=== PATIENT | male | born 1950 | race Caucasian/White ===

== ENCOUNTER 2019-07-08 01:44 | Day surgery (SDC) | payer MEDICARE, SELFPAY ==
[2019-07-02 14:40] VITALS: BMI 28.8
[2019-07-08 08:40] VITALS: BP 127/90; PULSE 64; RESP 16; TEMP 36.2; O2SAT 98
[2019-07-08] MEDS: LACTATED RINGERS 1,000 ML 150 ML IV CONT (08:43)
--- NOTE | 2019-07-08 09:02 | WPDANESEPPF ---
Anes - Initial Pre Proc Eval Procedure: Operation Date: 07/08/19 09:30 Proposed Procedures p Esophagogastroduodenoscopy - Jonathon Ferguson MD Date/Time: 07/08/19 09:02 Surgeon: Jonathon Ferguson MD Pre Op Diagnosis: Barretts Esophagus Patient Data Age: 69 Gender: M Height: 5 ft 8 in Weight: 86.7 kg Last Vital Signs Temp 97.2 F L 07/08/19 08:40 Pulse 64 07/08/19 08:40 Resp 16 07/08/19 08:40 BP 127/90 07/08/19 08:40 Pulse Ox 98 07/08/19 08:40 Allergies Allergy/AdvReac Type Severity Reaction Status Date / Time No Known Allergies Allergy Verified 07/08/19 08:39 Home Medications Medication Instructions Recorded Confirmed Type carvedilol [Coreg] 12.5 mg PO DAILY 07/02/19 07/02/19 History triamterene-hydrochlorothiazid 75 tablet PO DAILY 07/02/19 07/02/19 History [Maxzide] Patient hx anesthesia problems: none Family hx anesthesia problems: none [facility] Past Medical History Medical History (Updated 07/08/19 @ 09:01 by Bridger Suarez MD) Hypertension Social History Social History Gender identity (if verbalized by the patient): Male Anes - Eval Final PreProcedure Day of Procedure 07/08/19 09:02 Patient weight: overweight Heart: regular rate and rhythm Lungs: clear to auscultation Airway: Mallampati scale class III Neurological: alert and oriented Last oral intake: >/= 8 hours ASA classification: II Emergent: no Anesthetic plan: proceed Anesthesia type and monitoring: general GIVS and standard monitoring Informed Consent: The patient's anesthetic plan and its attendant risks and benefits were discussed with the patient/family/POA. Questions were solicited and answers provided to the satisfaction of the patient/family/POA.
--- NOTE | 2019-07-08 09:06 | P.HP_ITS ---
History of Present Illness History of Present Illness Consent: Risks, benefits, and alternatives have been discussed and questions answered. Patient agrees to proceed with procedure. Chief complaint: Barretts Esophagus Narrative: Earnest Lyman is a 69 year old W male undergoing gastroscopy for a previous history of Dial's esophagus. However last gastroscopy several years ago no Dial's was noted on biopsy. Patient has no symptoms. He stopped his acid inhibitory therapy. [facility] Past Medical History Medical History Hypertension Surgical History Surgical History History of bilateral carpal tunnel release Status post rotator cuff surgery Status post total right knee replacement Social History Social History Gender identity (if verbalized by the patient): Male Meds Home Medications and Allergies Home Medications Medication Instructions Recorded Confirmed Type carvedilol [Coreg] 12.5 mg PO DAILY 07/02/19 07/02/19 History triamterene-hydrochlorothiazid 75 tablet PO DAILY 07/02/19 07/02/19 History [Maxzide] Allergies Allergy/AdvReac Type Severity Reaction Status Date / Time No Known Allergies Allergy Verified 07/08/19 08:39 Vital Signs Vital Signs - 24 hr 07/08/19 08:40 Temperature 36.2 C L Pulse Rate 64 Respiratory Rate 16 Blood Pressure 127/90 Pulse Oximetry 98 Exam Const: Orientation/consciousness: patient oriented x3 Resp: Auscultation: clear to auscultation bilaterally Cardio: Rate: regular rate Rhythm: regular rhythm Heart sounds: no murmurs GI: GI Palp: Yes Soft to palpation, No Tenderness to palpation present (GI), Yes No hepatosplenomegaly present and No Palpable mass present Auscultation: normal bowel sounds Neuro: General: patient oriented x3 and no focal motor deficits Extrem: General: no pedal edema Assessment and Plan Additional Plan gastroscopy for follow-up of Dial's esophagus.
[2019-07-08] MEDS: BENZOCAINE (*SP) 60 ML SPRAY CAN (HURRICAINE) 1 SPRAY MUCOUS MEM (09:58)
[2019-07-08 10:10] VITALS: BP 88/59; PULSE 64; RESP 18; O2SAT 97
[2019-07-08 10:20] VITALS: BP 111/51; PULSE 68; RESP 18; O2SAT 97
[2019-07-08 10:30] VITALS: BP 112/76; PULSE 59; RESP 18; O2SAT 98
== END 2019-07-08 10:44 | disposition home or self-care (01) ==
PROVIDERS: PCP Internal Medicine; Visit Provider Internal Medicine Gastroenterology
PROC: 0DJ08ZZ Inspection of Upper Intestinal Tract, Via Natural or Artificial Opening Endoscopic (ICD-10-PCS; CPT 43235; principal; 2019-07-08 09:30)
DX: Z09 Encounter for follow-up examination after completed treatment for conditions other than malignant neoplasm (principal); K44.9 Diaphragmatic hernia without obstruction or gangrene; K21.0 Gastro-esophageal reflux disease with esophagitis; K29.50 Unspecified chronic gastritis without bleeding; Z87.19 Personal history of other diseases of the digestive system; I10 Essential (primary) hypertension
CPT/HCPCS: 43239; 87081; 88305; J2001; J2704; J7120

== ENCOUNTER 2020-12-13 11:25 | Emergency (ER) | payer OTHER, MEDICARE, SELFPAY ==
--- NOTE | ~2020-12-13 | XR_ITS ---
[[id number] ] INDICATION: Right rib pain TECHNIQUE: Frontal projection of the upper right ribs, frontal projection of the lower right ribs, ob lique projection of all the right. ribs, frontal inspiratory chest x-ray for interpretation. FINDINGS: There are no displaced rib fractures identified. There are no soft tissue abnormality see n. The lungs are clear. There is an acute right sixth and seventh rib fracture. There is healed rig ht sixth rib fracture. Heart size normal. There are degenerative changes of the right glenohumeral beryl int. IMPRESSION: 1: Acute right sixth and seventh rib fracture. Reviewed, dictated and finalized at location A.
[2020-12-13 11:37] VITALS: BP 131/94; PULSE 89; RESP 18; TEMP 36.5; O2SAT 99
--- NOTE | 2020-12-13 12:28 | ED.FALL ---
HPI - Fall General Chief Complaint: Fall Stated Complaint: flank pain after fall this AM Time Seen by Provider: 12/13/20 12:11 Source: RN notes reviewed History of Present Illness HPI Narrative: Patient presents emergency department from home for a fall. Patient states he is at work this morning when he slipped and fell on a wet floor and landed on his right side on a mop handle patient notes pain in the right lateral ribs that are worse with any movement and deep inspiration he denies striking his head or any loss of consciousness denies any blood thinner use denies any shortness of breath abdominal pain nausea vomiting or any other symptoms Related Data Home Medications Medication Instructions Recorded Confirmed carvedilol [Coreg] 12.5 mg PO DAILY 07/02/19 07/02/19 triamterene-hydrochlorothiazid 75 tablet PO DAILY 07/02/19 07/02/19 [Maxzide] Allergies Allergy/AdvReac Type Severity Reaction Status Date / Time No Known Allergies Allergy Verified 12/13/20 11:46 Review of Systems Review of Systems: Narrative: Gen.: Denies fevers or chills ENT: Denies congestion Respiratory: Denies shortness of breath or cough CV: Reports right-sided chest pain GI: Denies abdominal pain nausea, emesis or diarrhea Musculoskeletal: Denies back pain or muscle pain Neuro: Denies numbness, tingling, weakness or focal weakness Skin: Denies rash Except as documented, all other systems reviewed and negative [facility] Past Medical History Medical History (Updated 12/13/20 @ 13:20 by Howard Wallace DO) Hypertension Surgical History Surgical History History of bilateral carpal tunnel release Status post rotator cuff surgery Status post total right knee replacement Social History Social History (Updated 12/13/20 @ 12:29 by Howard Wallace DO) Smoking status: Never smoker Gender identity (if verbalized by the patient): Male Exam Narrative: Exam Narrative: APPEARANCE: No acute distress, nontoxic, resting in bed EYES: EOMI HEENT: Normocephalic, atraumatic, OMM RESPIRATORY: No respiratory distress Clear to auscultation bilaterally with no rhonchi wheezing or rales. CARDIOVASCULAR: Regular rate and rhythm without murmurs rubs or gallops. Chest: Tender palpation over the right anterior lateral chest and regions of ribs 6 through 10 pain with deep inspiration or any movement no overlying ecchymosis ABDOMINAL: Soft, nontender, nondistended, no rebound or guarding, no tenderness in right upper quadrant MUSCULOSKELETAl: Moves all extremities. No clubbing, cyanosis or edema. NEURO: Awake and alert x 4. Following commands, speech normal, no focal deficits SKIN:: Warm, dry. No rashes lesions or abrasions PSYCHIATRIC: Normal affect/mood, Course Course Emergency Course: Patient given incentive spirometer in ED with instructions Discussed with patient results of workup and diagnosis. Discussed need for follow-up with primary care, proper use of medication, and reasons to return to the emergency department. Patient understands and agrees to current treatment plan Vital Signs Vital signs: Vital Signs Temperature 97.7 F 12/13/20 11:37 Pulse Rate 89 12/13/20 11:37 Respiratory Rate 18 12/13/20 11:37 Blood Pressure 131/94 H 12/13/20 11:37 Pulse Oximetry 99 12/13/20 11:37 Temperature 97.7 F 12/13/20 11:37 Pulse Rate 89 12/13/20 11:37 Respiratory Rate 18 12/13/20 11:37 Blood Pressure 131/94 H 12/13/20 11:37 Pulse Oximetry 99 12/13/20 11:37 MDM - Fall Imaging Data Radiologist's impression: ITS Impressions Ribs w/Chest X-Ray 12/13/20 12:37 IMPRESSION: 1: Acute right sixth and seventh rib fracture. Discharge Plan Discharge Clinical Impression: Closed traumatic nondisplaced fracture of multiple ribs of right side Patient Disposition: Home, Self-Care Condition: Stable Instructions: Antibiotic Form, Rib Fract
--- NOTE | 2020-12-13 12:32 | PC.NURSE ---
Pt off floor to radiology
[2020-12-13] MEDS: HYDROcodone/acetaminophen (*CRX) 5-325 MG TABLET 1 TAB PO (12:35)
[2020-12-13 13:38] VITALS: BP 127/96; PULSE 80; RESP 18; TEMP 36.4; O2SAT 96
== END 2020-12-13 13:41 | disposition home or self-care (01) ==
PROVIDERS: Emergency Provider Emergency Medicine; PCP Internal Medicine
DX: R10.9 Unspecified abdominal pain (principal); S22.41XA Multiple fractures of ribs, right side, initial encounter for closed fracture; W01.0XXA Fall on same level from slipping, tripping and stumbling without subsequent striking against object, initial encounter; I10 Essential (primary) hypertension
CPT/HCPCS: 71101; 99283; A9270

== ENCOUNTER 2021-01-11 09:13 | Outpatient (CLI) | payer OTHER, MEDICARE, SELFPAY ==
--- NOTE | ~2021-01-11 | XR_ITS ---
EXAMINATION: XR chest 2V DATE: 01/11/2021 09:44 INDICATION: Closed fracture of multiple right ribs. TECHNIQUE: Frontal and lateral views of the chest were obtained. COMPARISON: Chest and right rib radiographs 12/13/2020 FINDINGS: There is mild atelectasis in right lower lung zone. No pleural effusion or pneumothorax. Th e heart size is normal. There are multiple old healed right rib fractures. There is an old healed fra cture of inferior angle of the scapula. IMPRESSION: 1. Mild atelectasis in right lower lung zone. Reviewed, dictated and finalized at location A.
== END 2021-01-11 09:14 | disposition home or self-care (01) ==
PROVIDERS: PCP Internal Medicine; Visit Provider Internal Medicine
DX: S22.41XA Multiple fractures of ribs, right side, initial encounter for closed fracture (principal); X58.XXXA Exposure to other specified factors, initial encounter; R91.8 Other nonspecific abnormal finding of lung field
CPT/HCPCS: 71046

== ENCOUNTER 2021-01-18 13:59 | Outpatient (CLI) | payer OTHER, SELFPAY ==
--- NOTE | ~2021-01-18 | CT_ITS ---
EXAMINATION:CT diagnostic chest wo con DATE: 01/18/2021 14:30 INDICATION: Right chest pain. TECHNIQUE: Computed tomography (CT) of the chest was performed without intravenous contrast. Automate d exposure control and iterative reconstruction technique were employed. The dose-length product (DLP ) was 281.78 mGy-cm. COMPARISON: Chest 2 views 01/11/2021 FINDINGS: The lungs demonstrate mild atelectasis. There are subpleural bands in right lower lobe and right upper lobe. There are a few nodules in the lungs measuring up to 5 mm, likely benign. No pleura l effusion. The heart size is normal. There are coronary artery calcifications. No pericardial effusi on. There are suture anchors in left humeral head. There is severe right glenohumeral joint osteoarth ritis and moderate left glenohumeral joint osteoarthritis. There are healing fractures of right fourt h-eighth ribs. There is an old fracture of inferior angle of right scapula with nonunion. IMPRESSION: 1. Healing right rib fractures. Reviewed, dictated and finalized at location A.
== END 2021-01-18 14:00 | disposition home or self-care (01) ==
PROVIDERS: PCP Internal Medicine; Visit Provider Internal Medicine
DX: T14.90XA Injury, unspecified, initial encounter (principal); I25.10 Atherosclerotic heart disease of native coronary artery without angina pectoris; M19.012 Primary osteoarthritis, left shoulder; M19.011 Primary osteoarthritis, right shoulder
CPT/HCPCS: 71250

== ENCOUNTER → 2021-07-04 10:40 | Outpatient (CLI) | payer MEDICARE, SELFPAY ==
--- NOTE | ~2021-07-04 | DEXA_ITS ---
Bone Density Report Name: AMERICO ARTEAGA Age: 71 Sex: Male Ethnicity: White Date of : 1950 Indication: screening for osteoporosis; height loss; prior fracture; Referring Provider: Nina Cervantes Study: Bone densitometry was performed. Exam Date: July 04, 2021 Accession number: [id number] Bone Density: Region BMD T-score Z-score Classification AP Spine (L1-L4) 1.403 2.8 3.7 Normal Femoral Neck (Left) 0.956 0.2 1.4 Normal Total Hip (Left) 1.168 0.9 1.6 Normal Femoral Neck (Right) 0.983 0.4 1.6 Normal Total Hip (Right) 1.156 0.8 1.5 Normal Total Hip Mean 1.162 0.9 1.6 Normal World Health Organization criteria for BMD impression classify patients as: Normal (T-score at or above -1.0), Osteopenia (T-score between -1.0 and -2.5), or Osteoporosis (T-score at or below -2.5). 10-year Fracture Risk: FRAX not reported because: All T-scores for Spine Total, Hip Total, Femoral Neck at or above -1.0 Clinical Information Provided by Patient: Has had a low trauma fracture Has used the following medications: Vitamin D Patient maximum height was 68 No regular weight bearing exercise Drinks caffeinated beverages Impression: The patient has normal bone mass. The patient has risk factors, including: previous fracture. Discussion: BONE DENSITY IS ABOVE THE MINIMUM DESIRABLE LEVEL AT ALL SKELETAL SITES TESTED. This patient?s bone mineral density is above the minimum desirable level (T-score -1.0 or better) at all sites measured. The patient should follow a healthful lifestyle (good nutrition with adequate calcium and vitamin D, and appropriate weight-bearing exercise). Follow-Up: Consider repeating this study in 5 years or sooner if there is some new clinical indication. Reported by: PIPER on 07/04/2021 3:58:00 PM. Reviewed, dictated and finalized at location AJosé Miguel [facility] NETWORKClifford
== END ==
PROVIDERS: PCP Internal Medicine
DX: M85.88 Other specified disorders of bone density and structure, other site (principal)
CPT/HCPCS: 77080

== ENCOUNTER 2021-10-26 09:44 | Emergency (ER) | payer MEDICARE, SELFPAY ==
--- NOTE | ~2021-10-26 | CT_ITS ---
EXAMINATION: CTA chest PE protocol DATE: 10/26/2021 11:10 CDT INDICATION: Elevated d-dimer. Shortness of breath and chest pain. TECHNIQUE: Computed tomographic angiography (CTA) of the chest was performed with 100 mL Omnipaque-35 0 intravenous contrast. The dose-length product was 468.73 mGy-cm. Maximum intensity projection 3D-re constructions of the aorta and other arteries were constructed by the technologist on a separate work station. COMPARISON: CT dated 01/18/2021. FINDINGS: Study is technically adequate without evidence for pulmonary embolism. Heart size is normal . No significant pleural or pericardial effusion. There is hilar lymphadenopathy, likely reactive. Th ere is atherosclerosis of the aorta and coronary arteries. No evidence for aneurysm. There is a 1.7 c m left adrenal adenoma. Gallbladder is present. No endobronchial lesions. There is dependent atelecta sis. Mild paraseptal emphysema. There is a 6 mm left lower lobe nodule, image 78, unchanged. There is a 3 mm left lower lobe nodule which has a groundglass appearance, unchanged, image 70. There is a 4 mm left lower lobe nodule, image 63, unchanged. 4 mm left upper lobe nodule, image 47, unchanged. Mil d thoracic spondylosis. IMPRESSION: 1. No evidence for pulmonary embolism. 2: Stable or slightly decreased size of left pulmonary nodules measuring 6 mm or less, likely benign. Consider follow-up CT in 12 months. 3: Hilar lymphadenopathy, likely reactive. Reviewed, dictated and finalized at location B. IMPRESSION: 1. No evidence for pulmonary embolism. 2: Stable or slightly decreased size of left pulmonary nodules measuring 6 mm o r less, likely benign. Consider follow-up CT in 12 months. 3: Hilar lymphadenopathy, likely reactive.
--- NOTE | ~2021-10-26 | XR_ITS ---
EXAMINATION: XR chest 2V DATE: 10/26/2021 10:50 INDICATION: Shortness of breath. Posterior chest pain. TECHNIQUE: Frontal and lateral views of the chest were obtained. COMPARISON: Chest 2 views 01/11/2021 FINDINGS: The chest demonstrates clear lungs without pneumonia, pleural effusion, or pneumothorax. Th e heart size is normal. There are suture anchors in left humeral head. There are old healed right rib fractures. IMPRESSION: 1. No acute cardiopulmonary disease. Reviewed, dictated and finalized at location A.
[2021-10-26 09:50] VITALS: BP 169/97; PULSE 67; RESP 15; TEMP 36.6; O2SAT 98
--- NOTE | 2021-10-26 09:57 | ECG_ITS ---
Measurements Intervals Steele Rate: 63 P: 32 MS: 186 QRS: -35 QRSD: 81 T: -13 QT: 374 QTc: 383 Interpretive Statements SINUS RHYTHM LEFT AXIS DEVIATION [QRS AXIS < -30] VOLTAGE CRITERIA FOR LVH [MEETS CRITERIA IN ONE OF: R(aVL), S(V1), R(V5), R(V5/V6)+S(V1)] NONSPECIFIC T-WAVE ABNORMALITY NO PREVIOUS ECG AVAILABLE FOR COMPARISON Electronically Signed On 10-26-2021 14:11:46 CDT by Frantz Colbert M.D.
[2021-10-26 09:58] VITALS: PULSE 68
[2021-10-26 10:07] LABS: Basophils Percent Auto 0.7 % (0.2-1.2); Hematocrit 45.6 % (42.0-52.0); Hemoglobin 16.5 g/dL (14.0-18.0); Immature Granulocyte Absolute 0.01 K/mm3 (0.00-0.031); Immature Granulocyte Percent A 0.2 % (0-0.5); Lymphocytes Absolute Auto 1.25 K/mm3 (0.9-3.2); Lymphocytes Percent Auto 29.8 % (18.3-44.2); Mean Corpuscular HGB Conc 36.2 g/dl (32-36); Mean Corpuscular Hemoglobin 32.7 pg (26-34); Mean Corpuscular Volume 90.3 fl (80-100); Mean Platelet Volume 10.8 fl (7.4-10.4); Monocytes Absolute Auto 0.5 K/mm3 (0.1-0.6); Monocytes Percent Auto 11.7 % (2.6-8.5); Neutrophils Absolute Auto 2.4 K/mm3 (1.3-6.7); Neutrophils Percent Auto 56.6 % (45.5-73.1); Platelet Count Result 167 k/mm3 (150-375); Red Blood Count 5.05 M/mm3 (4.6-6.20); Red Cell Distribution Width 12.8 % (11.5-14.5); White Blood Count 4.2 K/mm3 (4.5-10.0)
--- NOTE | 2021-10-26 10:09 | ED.GENADULT ---
HPI - General Adult General Chief complaint: Chest Pain Stated complaint: cp Time Seen by Provider: 10/26/21 09:46 Source: patient, family and RN notes reviewed Mode of arrival: ambulatory Limitations: no limitations History of Present Illness HPI narrative: This is a 71 year old male with history of hypertension, chronic back pain and hyperlipidemia who presents for evaluation of shortness of breath. Patient states he has been short of breath since he woke up this morning. He has been having to stop frequently when he walks around due to shortness of breath. Patient states this started today but his is reporting it has been going on for a while. Patient states he has been having constant right upper back pain for 1 year after fall. He was seen by his PCP for his pain, and he was prescribed pain medication. His states his pain was severe a few days. Patient also notes 6 days he was having intermittent right anterior chest pain . This pain occurred at rest and he denies any exacerbating factors. He denies having chest pain since Friday. Related Data Home Medications Medication Instructions Recorded Confirmed carvedilol 12.5 mg tablet (Coreg) 12.5 mg PO DAILY 07/02/19 07/02/19 triamterene 75 75 tablet PO DAILY 07/02/19 07/02/19 mg-hydrochlorothiazide 50 mg tablet (Maxzide) Allergies Allergy/AdvReac Type Severity Reaction Status Date / Time No Known Allergies Allergy Verified 10/26/21 09:59 Review of Systems Review of Systems: All systems reviewed & are unremarkable except as noted in HPI and below Constitutional: Constitutional: Denies chills, Denies fatigue and Denies fever(s) ENT: Denies nasal congestion and Denies sore throat Cardiovascular: Cardiovascular: Reports chest pain, Denies radiating jaw, neck or arm pain and Denies slow heart rate Respiratory: Respiratory: Denies chest congestion, Reports cough and Reports dyspnea Gastrointestinal: Gastrointestinal: Denies abdominal pain, Denies bloating, Denies constipation and Denies heartburn Genitourinary: Genitourinary: Denies hematuria and Denies dysuria Musculoskeletal: Musculoskeletal: Reports back pain Neurologic: Denies headache(s), Denies focal weakness and Denies numbness Psychiatric: Psychiatric: Denies anxiety and Denies depression Allergic/Immunologic: Allergic/Immunologic: Denies throat swelling and Denies tongue swelling PMFSH Past Medical History Medical History Hyperlipidemia Hypertension Surgical History Surgical History History of bilateral carpal tunnel release Status post rotator cuff surgery Status post total right knee replacement Social History Social History Smoking status: Never smoker Gender identity (if verbalized by the patient): Male Exam Const: General: healthy appearing Nutritional Appearance: well nourished Orientation/consciousness: patient oriented x3 Limitations: no limitations HENMT: Head: normal to inspection Throat: posterior oropharynx normal Eyes: EOM: EOMs intact bilaterally Neck: Neck: normal visual inspection Chest: Chest palpation & inspection: normal inspection of the chest Resp: Effort & Inspection: normal respiratory effort Cardio: Rate: regular rate Rhythm: regular rhythm Heart sounds: no murmurs GI: GI Palp: Yes Soft to palpation, No Tenderness to palpation present (GI), No Guarding due to palpation present (GI) and Yes Hernia present (umbilical) Auscultation: normal bowel sounds Back/Spine/Pelvis: Back: no CVA tenderness Skin: General skin exam: normal color Rashes: no rashes Neuro: General: patient oriented x3, moves all extremities and CN's II-XI intact bilaterally Cranial nerves: Yes Nystagmus not present Speech: normal speech Extrem: General: normal to inspection Psych:
[2021-10-26 10:16] LABS: Appearance Urine Clear (Clear); Bilirubin Urine Negative (Negative); Blood Urine Negative (Negative); Color Urine Yellow (Yellow); Glucose Urine UA Negative (Negative); Ketones Urine Negative (Negative); Leukocyte Esterase Ur Trace LEU/UL (Negative); Nitrate Urine Negative (Negative); Protein Urine 1+ mg/dL (Negative); Specific Grav Ur 1.015 (1.001-1.035); Urobilinogen Urine 0.2 mg/dL (<2.0); pH Urine 7.5 (5.0-9.0)
[2021-10-26 10:25] LABS: Alveolar/Arterial O2 Gradient 37.2 mmHg; Base Excess ABG 4.4 mEq/l (+/-2.0); Carboxyhemoglobin 0.5 % THb (0-2.0); Fractional Inspired Oxygen 21 %; Methemoglobin ABG 0.1 %THb (0-1.5); Oxygen Content ABG 21.4 %vol (16.0-22.0); Oxygen Saturation ABG 94.4 % (95.0-100.0); Oxyhemoglobin 92.6 % THb (90.0-100.0); PCO2 ABG 38.7 mmHg (35.0-45.0); PO2 ABG 66.2 mmHg (80.0-100.0); PO2 FiO2 Ratio Arterial Blood 3.15 %; Reduced Hemoglobin 6.8 %THb (0-5.0); Total Hemoglobin 16.5 g/dL (12.0-18.0); pH ABG 7.478 (7.350-7.450)
[2021-10-26 10:25] LABS: Alanine Aminotransferase 20 U/L (6-50); Albumin Level 4.5 g/dL (3.5-5.1); Alkaline Phosphatase 70 U/L (38-126); Anion Gap 8 mmol/L (8-16); Aspartate Amino Transferase 28 U/L (17-59); Bilirubin,Total 0.6 mg/dL (0.2-1.3); Blood Urea Nitrogen 20 mg/dL (9-20); Carbon Dioxide 29 mmol/L (22-30); Chloride 101 mmol/L (98-107); Estimated CRCL calculation 68 ml/min; Estimated Glomerular Filt Rate > 60; Glucose 113 mg/dL (65-110); Sodium 138 mmol/L (137-145)
[2021-10-26 10:27] VITALS: BP 123/73; PULSE 61; RESP 16; O2SAT 94
[2021-10-26 10:27] LABS: Device ROOM AIR; Modified Allen's Test Pass; Site Drawn LEFT RADIAL
[2021-10-26 10:33] LABS: Mucus Urine Rare /lpf; RBC Urine 0-2 /hpf (0-2); Squamous Epithelial Cell Urine Rare /hpf (Few); WBC Urine 0-3 /hpf
[2021-10-26 10:36] LABS: NT Pro B Type Natriuretic Pept 51 pg/mL (5-100); Troponin I 0.021 ng/mL (0.000-0.034)
[2021-10-26 10:39] LABS: INR 0.9; Prothrombin Time 12.1 Seconds (11.1-14.7)
[2021-10-26 10:40] LABS: Partial Thromboplastin Time 27.8 SECONDS (22.3-36.8)
[2021-10-26 10:41] LABS: D Dimer 0.58 ug/mL (<0.48)
[2021-10-26 10:50] LABS: SARS-CoV-2 RNA PCR Positive
[2021-10-26 11:16] LABS: Add Urine Microscopic? YES
[2021-10-26 11:34] VITALS: BP 116/76; PULSE 66; RESP 16; TEMP 36.8; O2SAT 100
--- NOTE | 2021-10-26 12:06 | PC.NURSE ---
ambulated pt in tanner.gait steady no distress, skin pwd. SPO2 started at 98% and lowest it dropped was 96% ERP notified
[2021-10-26 12:23] VITALS: BP 118/70; PULSE 68; RESP 16; TEMP 36.3; O2SAT 98
== END 2021-10-26 12:26 | disposition home or self-care (01) ==
PROVIDERS: Emergency Provider General Practice; PCP Internal Medicine
DX: U07.1 COVID-19 (principal); R07.89 Other chest pain; E78.5 Hyperlipidemia, unspecified; I10 Essential (primary) hypertension; Z96.651 Presence of right artificial knee joint; R91.8 Other nonspecific abnormal finding of lung field; R94.31 Abnormal electrocardiogram [ECG] [EKG]
CPT/HCPCS: 36415; 36600; 71046; 71275; 80053; 81001; 82375; 82805; 83050; 83880; 84484; 85025; 85380; 85610; 85730; 93005; 99284; C9803; Q9967; U0003; U0005

== ENCOUNTER 2021-10-30 11:43 | Emergency (ER) | payer MEDICARE, SELFPAY ==
[2021-10-30 11:58] VITALS: BP 160/84; PULSE 72; RESP 18; TEMP 36.3; O2SAT 99
[2021-10-30 12:10] VITALS: O2SAT 96
--- NOTE | 2021-10-30 12:36 | ED.URI ---
HPI - URI/Sore Throat General Chief Complaint: Upper Respiratory Infection Stated Complaint: shortness of breath COVID DX 10/26 Time Seen by Provider: 10/30/21 12:02 History of Present Illness HPI Narrative: Patient is a 71-year-old male with a history of recent COVID diagnosis here for evaluation for low pulse ox at home. Patient states that he had a home pulse oximeter reading of 93% today. He called his primary care provider who recommended ED evaluation. Patient states that his symptoms have improved greatly since first being diagnosed with COVID. Patient is now sleeping through the night without coughing. He only has a lingering, mild nonproductive cough during the daytime, but does not feel short of breath, has no chest pain, no leg swelling, fevers, or chills. Related Data Home Medications Medication Instructions Recorded Confirmed carvedilol 12.5 mg tablet (Coreg) 12.5 mg PO DAILY 07/02/19 07/02/19 triamterene 75 75 tablet PO DAILY 07/02/19 07/02/19 mg-hydrochlorothiazide 50 mg tablet (Maxzide) Allergies Allergy/AdvReac Type Severity Reaction Status Date / Time No Known Allergies Allergy Verified 10/26/21 09:59 Review of Systems Review of Systems: Gen.: Denies fevers or chills Eyes: Denies eye pain or visual change ENT: Denies congestion Respiratory: Reports cough. Denies shortness of breath CV: Denies chest pain or palpitations GI: Denies abdominal pain nausea, emesis or diarrhea : denies burning, urgency, frequency or hematuria Musculoskeletal: Denies back pain or muscle pain Neuro: Denies numbness, tingling, weakness or focal weakness Skin: Denies rash Except as documented, all other systems reviewed and negative [facility] Past Medical History Medical History Hyperlipidemia Hypertension Surgical History Surgical History History of bilateral carpal tunnel release Status post rotator cuff surgery Status post total right knee replacement Social History Social History Smoking status: Never smoker Gender identity (if verbalized by the patient): Male Exam Narrative: APPEARANCE: Well appearing, no pain in distress, well-nourished. Head: normocephalic and atraumatic. EYES: PERRLA/EOMI, conjunctivae clear NOSE: No nasal drainage EARS: External ear normal in appearance THROAT: Oropharynx is clear. Mucous membranes are moist. NECK: Supple. No adenopathy, no masses. RESPIRATORY: Airway patent, respirations nonlabored. Clear to auscultation bilaterally, no rales, rhonchi, wheezing. CARDIOVASCULAR: Regular rate and rhythm without murmurs, rubs, or gallops. ABDOMINAL: Normoactive bowel sounds. Soft, nontender, nondistended. No rebound tenderness or guarding. MUSCULOSKELETAL: Extremities are warm and well-perfused. Moves all extremities well. No edema. NEURO: Normal speech. No focal neurologic deficits. SKIN: Skin is warm and dry. No rashes. PSYCHIATRIC: Normal affect/mood. Course Vital Signs Vital signs: Vital Signs Temperature 97.4 F L 10/30/21 11:58 Pulse Rate 72 10/30/21 11:58 Respiratory Rate 18 10/30/21 11:58 Blood Pressure 160/84 H 10/30/21 11:58 Pulse Oximetry 99 10/30/21 11:58 Oxygen Delivery Room Air 10/30/21 11:58 Temperature 98.2 F 10/30/21 12:59 Pulse Rate 68 10/30/21 12:59 Respiratory Rate 18 10/30/21 12:59 Blood Pressure 128/84 10/30/21 12:59 Pulse Oximetry 98 10/30/21 12:59 Oxygen Delivery Room Air 10/30/21 12:10 MDM - URI/Sore Throat MDM Narrative Medical decision making narrative: 71-year-old male who is COVID-positive here for evaluation of a pulse ox of 93% at home. Patient saturating at 99% on room air, patient was ambulated throughout the emergency department and maintained oxygen saturations above 97%. His heart and lungs are clear to aus
--- NOTE | 2021-10-30 12:45 | PC.NURSE ---
Patient maintained an O2 saturation of 96%-97% while ambulating with pulse oximeter on finger.
[2021-10-30 12:59] VITALS: BP 128/84; PULSE 68; RESP 18; TEMP 36.8; O2SAT 98
== END 2021-10-30 13:00 | disposition home or self-care (01) ==
PROVIDERS: Emergency Provider Emergency Medicine; PCP Internal Medicine
DX: U07.1 COVID-19 (principal); E78.5 Hyperlipidemia, unspecified; I10 Essential (primary) hypertension; Z96.651 Presence of right artificial knee joint
CPT/HCPCS: 99281

== ENCOUNTER → 2023-03-18 09:38 | Outpatient (CLI) | payer MEDICARE, SELFPAY ==
--- NOTE | ~2023-03-18 | CT_ITS ---
EXAMINATION:CT diagnostic chest wo con DATE: 03/18/2023 10:07 INDICATION: Lung nodule. Personal history of nicotine dependence. TECHNIQUE: Computed tomography (CT) of the chest was performed without intravenous contrast. Automate d exposure control and iterative reconstruction technique were employed. The dose-length product (DLP ) was 157.71 mGy-cm. COMPARISON: Chest CT 10/26/2021, 01/18/21 FINDINGS: The lungs demonstrate mild atelectasis. There is mild scarring in paraspinal right lower lo be. A calcified right lung nodule and calcified right hilar lymph nodes are consistent with old granu lomatous disease. There are a few nodules in the lungs measuring up to 7 mm. No pleural effusion. The heart size is normal. No pericardial effusion. There are coronary artery calcifications. No pericard ial effusion. There are suture anchors in left humeral head. There are old healed right rib fractures . There is an old fracture of right scapula. There is moderate thoracic spondylosis. There is mild ch ronic anterior wedging of multiple lower thoracic vertebral bodies. IMPRESSION: 1. Pulmonary nodules, stable from 01/18/2021, likely benign. Reviewed, dictated and finalized at location E.
== END ==
PROVIDERS: PCP Internal Medicine; Visit Provider Internal Medicine
DX: Z87.891 Personal history of nicotine dependence (principal); R91.8 Other nonspecific abnormal finding of lung field
CPT/HCPCS: 71250

== ENCOUNTER 2023-07-17 09:27 | Emergency (ER) | payer MEDICARE, SELFPAY ==
[2023-07-17] VITALS (33 sets, daily range): BP systolic 100–153; BP diastolic 62–95; PULSE 59–73; RESP 14–17; TEMP 36.4; O2SAT 94–100
--- NOTE | ~2023-07-17 | CT_ITS ---
EXAMINATION: CTA chest PE abdomen pel DATE: 07/17/2023 11:44 INDICATION: Left flank pain. TECHNIQUE: Computed tomography angiography (CTA) of the chest was performed with 100 mL Omnipaque-350 intravenous contrast timed to evaluate the pulmonary arteries. Coronal maximum intensity projection 3D-reconstructions were created by the technologist. Computed tomography (CT) of the abdomen and pelv is was performed with intravenous contrast. Automated exposure control and iterative reconstruction t echnique were employed. The dose-length product was 1104.19 mGy-cm. COMPARISON: CT chest 03/18/2023, 10/26/2021, 01/26/2021 FINDINGS: CTA chest: There is a mild burden of peripheral chronic septal thickening in the lungs. A calcified r ight lung nodule and calcified right hilar lymph nodes are consistent with old granulomatous disease. There are a few chronic scattered pulmonary nodules measuring up to 7 mm, likely benign. No pleural effusion. The heart size is normal. No pericardial effusion. There is a small sliding hiatal hernia. There is no pulmonary embolus. There is an old fracture of right scapula. There are old healed right rib fractures. There is moderate thoracic spondylosis. There is mild chronic anterior wedging of mult iple vertebral bodies. CT abdomen and pelvis: There is a 5 mm cyst in the liver. The gallbladder, spleen, pancreas, and righ t adrenal gland are normal. There is a 14 mm mass in left adrenal gland measuring soft tissue attenua tion that measured low attenuation on the prior noncontrast CT, consistent with an adenoma. There are cysts in the kidneys measuring up to 7 mm on the left. There is a 19 mm stone in the bladder. The pr ostate is mildly enlarged. There is a left inguinal hernia containing fat. There is diverticulosis of the colon without evidence of diverticulitis. There are no dilated loops of bowel. The appendix is n ormal. There are no pathologically enlarged lymph nodes. There is no free intraperitoneal fluid. Ther e is moderate lumbar spondylosis. IMPRESSION: 1. No pulmonary embolus. 2. Bladder stone. 3. Left inguinal hernia containing fat. 4. Small sliding hiatal hernia. Reviewed, dictated and finalized at location A. [employer]
--- NOTE | 2023-07-17 10:05 | ECG_ITS ---
Measurements Intervals [place] Rate: 64 P: 18 MO: 182 QRS: -41 QRSD: 75 T: -23 QT: 357 QTc: 369 Interpretive Statements SINUS RHYTHM LEFT AXIS DEVIATION [QRS AXIS < -30] POSSIBLE RIGHT VENTRICULAR CONDUCTION DELAY [RSR (QR) IN V1/V2] MODERATE VOLTAGE CRITERIA FOR LVH, CONSIDER NORMAL VARIANT [MEETS CRITERIA IN ONE OF: R(aVL), S(V1), R(V5), R(V5/V6)+S(V1)] NONSPECIFIC T-WAVE ABNORMALITY COMPARED TO ECG 10/26/2021 09:55:22 NO SIGNIFICANT CHANGES Electronically Signed On 07-17-2023 15:45:32 [employer] by Jessica Marcano M.D.
--- NOTE | 2023-07-17 10:08 | ED.GENADULT ---
HPI - General Adult General Chief complaint: Urogenital-Male Stated complaint: back/flank pain, known kidney stone Time Seen by Provider: 07/17/23 09:50 History of Present Illness HPI narrative: 73-year-old male is reporting emergency department for multiple medical complaints. Patient is reporting pain to his right flank, right upper back, right shoulder, and states sometimes it radiates down his arm and up into his neck. States this pain is chronic and he usually takes Tylenol and hydrocodone as needed. He is reporting lightheadedness that started today with increasing shortness of breath and states his breath feels like it is catching . He is a poor historian and is unable to tell me if his pain is changed today or if his shortness of breath and catching breath is secondary to pain. He notes that he has a known kidney stone that is located in his bladder and he is scheduled to get it removed by his urologist this week. He reports some intermittent dysuria, and a productive cough x1 week. Denies lower extremity edema, fever, nausea or vomiting, Chest pain, Recent injury or trauma, saddle anesthesia, bowel or bladder incontinence or retention. Related Data Home Medications Medication Instructions Recorded Confirmed carvedilol 12.5 mg tablet (Coreg) 12.5 mg PO DAILY 07/02/19 07/02/19 triamterene 75 75 tablet PO DAILY 07/02/19 07/02/19 mg-hydrochlorothiazide 50 mg tablet (Maxzide) Allergies Allergy/AdvReac Type Severity Reaction Status Date / Time No Known Allergies Allergy Verified 07/17/23 09:32 Review of Systems Review of Systems: CONSTITUTIONAL: Denies fever, chills, or sweats. EYES: Denies visual changes, redness, or discharge. ENT: see HPI CARDIOVASCULAR: Denies chest pain, palpitations, or edema. RESPIRATORY: Denies cough or dyspnea. GASTROINTESTINAL: HPI GENITOURINARY: Denies dysuria or hematuria. SKIN: Denies rash or itching. MUSCULOSKELETAL: See HPI NEUROLOGIC: Denies headache, numbness, or weakness. PSYCHIATRIC: Denies anxiety or depression. [facility] Past Medical History Medical History Hyperlipidemia Hypertension Surgical History Surgical History History of bilateral carpal tunnel release Status post rotator cuff surgery Status post total right knee replacement Social History Social History Smoking status: Never smoker Gender identity (if verbalized by the patient): Male Exam Narrative: GENERAL: Well-appearing, well-nourished, and in no acute distress. HEAD: Normocephalic, atraumatic. EYES: PERRLA and EOMI. ENT: Nares clear, no rhinorrhea or epistaxis. Mucous membranes moist. NECK: no midline cervical spinous tenderness, step-offs or deformities. BACK: no midline thoracolumbar spinous tenderness, step-offs or deformities. CHEST: Clear to auscultation. No respiratory distress. HEART: Regular rate and rhythm. No murmur heard. Normal peripheral pulses. ABDOMEN: Soft, nontender, nondistended, normal active bowel sounds. right-sided CVA tenderness. MSK: Tenderness to the right lower, upper and middle back that extends up into the right shoulder and right trapezius. Full range of motion of shoulder. No midline thoracolumbar tenderness. no saddle anesthesia. Strength 5/5 in bilateral upper and lower extremities. Sensation intact throughout. SKIN: Warm, dry, no rash. NEURO: No focal deficits. Alert and oriented x3 Course Vital Signs Vital signs: Vital Signs Temperature 97.6 F 07/17/23 09:27 Pulse Rate 63 07/17/23 09:27 Respiratory Rate 14 07/17/23 09:27 Blood Pressure 153/95 H 07/17/23 09:27 Pulse Oximetry 100 07/17/23 09:27 Oxygen Delivery Room Air 07/17/23 09:27 Temperature 97.6 F 07/17/23 09:27 Pulse Rate 73 07/17/23 12:21 Respiratory Rate 17 02
[2023-07-17] MEDS: ACETAMINOPHEN 500 MG TABLET 1000 MG PO (10:21)
[2023-07-17] MEDS: SODIUM CHLORIDE 0.9% IV 1,000 ML 999 ML IV CONT (10:22)
[2023-07-17] MEDS: CYCLOBENZAPRINE HCL 10 MG TABLET PO (10:22)
[2023-07-17 10:38] LABS: Basophils Percent Auto 0.4 % (0.2-1.2); Eosinophils Absolute Auto 0.1 K/mm3 (0-0.3); Eosinophils Percent Auto 1.1 % (0-4.4); Hemoglobin 16.2 g/dL (14.0-18.0); Immature Granulocyte Absolute 0.01 K/mm3 (0.00-0.031); Immature Granulocyte Percent A 0.2 % (0-0.5); Lymphocytes Absolute Auto 1.21 K/mm3 (0.9-3.2); Lymphocytes Percent Auto 26.9 % (18.3-44.2); Mean Corpuscular HGB Conc 35.2 g/dl (32-36); Mean Corpuscular Hemoglobin 32.5 pg (26-34); Mean Corpuscular Volume 92.4 fl (80-100); Mean Platelet Volume 10.4 fl (7.4-10.4); Monocytes Absolute Auto 0.3 K/mm3 (0.1-0.6); Monocytes Percent Auto 7.3 % (2.6-8.5); Neutrophils Absolute Auto 2.9 K/mm3 (1.3-6.7); Neutrophils Percent Auto 64.1 % (45.5-73.1); Platelet Count Result 254 k/mm3 (150-375); Red Blood Count 4.98 M/mm3 (4.6-6.20); Red Cell Distribution Width 12.6 % (11.5-14.5); White Blood Count 4.5 K/mm3 (4.5-10.0)
[2023-07-17 10:52] LABS: Alanine Aminotransferase 19 U/L (6-50); Albumin Level 4.6 g/dL (3.5-5.1); Alkaline Phosphatase 67 U/L (38-126); Anion Gap 7 mmol/L (8-16); Aspartate Amino Transferase 28 U/L (17-59); Bilirubin,Total 0.8 mg/dL (0.2-1.3); Blood Urea Nitrogen 25 mg/dL (9-20); Calcium 9.9 mg/dL (8.4-10.2); Carbon Dioxide 27 mmol/L (22-30); Chloride 102 mmol/L (98-107); Estimated CRCL calculation 63 ml/min; Estimated Glomerular Filt Rate > 60; Glucose 97 mg/dL (65-110); Partial Thromboplastin Time 27.8 SECONDS (22.3-36.8); Potassium 4.1 mmol/L (3.4-5.0); Sodium 136 mmol/L (137-145)
[2023-07-17 11:03] LABS: NT Pro B Type Natriuretic Pept 72 pg/mL (19.9-100); Troponin I < 0.012 ng/mL (0.000-0.034)
--- NOTE | 2023-07-17 11:17 | PC.NURSE ---
Report given to Candi ALONSO, all questions answered
[2023-07-17 11:31] LABS: Appearance Urine Clear (Clear); Bacteria Urine None Seen /hpf; Bilirubin Urine Negative (Negative); Blood Urine Negative (Negative); Color Urine Yellow (Yellow); Glucose Urine UA Negative (Negative); Ketones Urine Negative (Negative); Leukocyte Esterase Ur Negative LEU/UL (Negative); Nitrate Urine Negative (Negative); Non Pathogenic Casts 0-2; Protein Urine 1+ mg/dL (Negative); RBC Urine 0-2 /hpf (0-2); Specific Grav Ur 1.016 (1.001-1.035); Squamous Epithelial Cell Urine None seen /hpf (Few); Urobilinogen Urine 0.2 mg/dL (<2.0); WBC Urine 0-5 /hpf
[2023-07-17 11:34] LABS: Add Urine Microscopic? YES
== END 2023-07-17 14:21 | disposition home or self-care (01) ==
PROVIDERS: Emergency Provider Physician Assistant; PCP Internal Medicine
DX: G89.29 Other chronic pain (principal); M54.6 Pain in thoracic spine; M54.50 Low back pain, unspecified; R42 Dizziness and giddiness; E78.5 Hyperlipidemia, unspecified; I10 Essential (primary) hypertension; Z96.651 Presence of right artificial knee joint; R06.02 Shortness of breath
CPT/HCPCS: 36415; 71275; 74177; 80053; 81001; 83880; 84484; 85025; 85610; 85730; 93005; 96360; 99284; A9270; J7030; Q9967